=== PATIENT | female | born 1965 | race Caucasian/White ===

== ENCOUNTER 2021-06-14 17:35 | Inpatient (IN) | payer BC ==
[~2021-06-14] VITALS: Ht 157.5 cm; Wt 81.7 kg
[2021-06-14 18:09] VITALS: BP_SYST 156
[2021-06-14 19:09] LABS: BILIRUBIN,URINE NEGATIVE (NEGATIVE); BLOOD, URINE NEGATIVE (NEGATIVE); CLARITY/URINE CLEAR (CLEAR); COLOR,URINE YELLOW (YELLOW); GLUCOSE,URINE NEGATIVE (NEGATIVE); KETONES,URINE NEGATIVE (NEGATIVE); LEUKOCYTE ESTERASE ,URINE NEGATIVE (NEGATIVE); NITRITE, URINE NEGATIVE (NEGATIVE); PROTEIN URINE NEGATIVE (NEGATIVE); UROBILINOGEN,URINE 0.2 (0.2-1.0)
[2021-06-14 19:46] LABS: BASOPHILS % (AUTO) 0.3 % (0.0-2.0); EOSINOPHILS # (AUTO) 0.1 K/uL (0.0-0.4); EOSINOPHILS % (AUTO) 1.4 % (0.0-4.0); HEMATOCRIT 41.2 % (36-48); LYMPHOCYTES # (AUTO) 1.8 K/uL (1.0-5.5); LYMPHOCYTES % (AUTO) 22.4 % (20.5-51.5); MEAN CORPUSCULAR HEMOGLOBIN 31 pg (27-31); MEAN CORPUSCULAR HGB CONC 34 % (32-36); MEAN CORPUSCULAR VOLUME 91 fL (79.0-98.0); MONOCYTES # (AUTO) 0.5 K/uL (0.0-1.0); MONOCYTES % (AUTO) 6.4 % (1.7-9.3); NEUTROPHILS # (AUTO) 5.5 K/uL (1.8-7.7); NEUTROPHILS % (AUTO) 69.5 % (40.0-70.0); PLATELET COUNT (AUTO) 296 K/uL (130-430); RED BLOOD CELL COUNT(AUTO) 4.51 MIL/uL (4.2-6.2)
[2021-06-14 19:55] LABS: CALCIUM 8.7 mg/dL (8.4-11.0); CREATININE 0.61 mg/dL (0.55-1.30); POTASSIUM 4.4 mmol/L (3.5-5.1)
--- NOTE | 2021-06-14 20:07 | NUR ---
Patient to ER bed 05 to gown for evaluation. Side rails up.
[2021-06-14 20:08] LABS: ALBUMIN 3.7 g/dL (3.4-4.8); TOTAL BILIRUBIN 0.2 mg/dL (0.0-1.0)
--- NOTE | 2021-06-14 20:21 | NUR ---
DR HARPER AT BEDSIDE FOR EXAM.
--- NOTE | 2021-06-14 20:21 | NUR ---
PT COMES TO ER WITH C/O LOWER ABD PAIN X 3 WEEKS, INTERNITTENT, NON RADIATING-SHARP IN SENSATION 610 AT THIS TIME. PT DENIES ANY N/V/D. NO FEVERS/CHILLS. PT STATES WORSEN WHEN SHE HAS A BOWL MOVEMENT, BUT REGULAR DAILY BMs. DENIES DYSURIA, BUT REPORTS FREQUENCY. URINE COLLECTED AND SENT TO LAB. ABD ROUND/SOFT, TENDER WITH PALPATION. RESP EVEN AND UNLABORED, DENIES ANY CP OR SOB. SKIN W/D/I. BLOOD DRAWN COLLECTED BY MORTGAGE LOAN OFFICER, WILL CONT TO MONITOR.
[2021-06-14] MEDS ORDERED: ACETAMINOPHEN 500 MG TABLET PO ONE (20:30)
[2021-06-14] MEDS ORDERED: IBUPROFEN 800 MG TABLET PO ONE (20:30)
[2021-06-14] MEDS ORDERED: DICYCLOMINE HCL 10 MG/5 ML SOLUTION PO ONE (20:30)
--- NOTE | 2021-06-14 20:39 | NUR ---
PT TO CT SCAN VIA W/C
--- NOTE | 2021-06-14 20:50 | NUR ---
PT MEDICATED, WILL MONITOR FOR EFFECT.
--- NOTE | 2021-06-14 21:41 | NUR ---
DR HARPER AT BEDSIDE FOR RE-EVALUATION. DR MICHAEL BANERJEE FOR POSS ADMISSSION.
[2021-06-14] MEDS ORDERED: MORPHINE 4 MG INJ. 4 MG/ML VIAL IVP ONE (22:15)
--- NOTE | 2021-06-14 22:17 | NUR ---
ADMISSION ORDERS RECEIVED BY DR RODRIGUEZ.
--- NOTE | 2021-06-14 22:42 | NUR ---
AT BEDSIDE, PLAN OF CARE DISCUSSED, VERBALIZED UNDERSTANDING.
--- NOTE | 2021-06-15 00:11 | NUR ---
REPORT GIVEN TO JUANITA ROMAN, UPDATED ON STATUS, ALBS AND VITALS. VSS
--- NOTE | 2021-06-15 00:22 | NUR ---
Patient will be admitted to care of DR RODRIGUEZ. Admitted to unit. Will go to room . Belongings list completed. Complete and up to date summary report printed. SBAR report to be given at bedside with opportunity for questions.
[2021-06-15 00:35] VITALS: BP_SYST 135
[2021-06-15] MEDS: D5NS 1,000 ML IV SCH ×3 (01:21→16:14)
--- NOTE | 2021-06-15 02:15 | NUR ---
ADMISSION: The patient, KYREE VICENTE, 56 y/o, F admitted by MIMI RODRIGUEZ DO, was given written information regarding hospital policies, unit procedures and contact persons. Valuables were checked and safety measures implemented call ponce given to patient assist for ambulation assist as needed .
[2021-06-15 08:00] VITALS: BP_SYST 136
--- NOTE | 2021-06-15 08:39 | NUR ---
CONSULTATION PAGED REASON FOR CONSULTATION:PERIHEPATIC FLUID, ABD PAIN WAS CONSULT CALLED?Y PERSON WHO WAS NOTIFIED:WESLY CONSULTING PHYSICIAN:SMITH BRAMBILA UPHOLSTERY AUTO TRIMMER SPECIALTY:SURGEON UPHOLSTERY AUTO TRIMMER PHONE NUMBER: [phone] REQUESTING PHYSICIAN:[facility]
[2021-06-15] MEDS ORDERED: MORPHINE 2 MG/ML INJ. SYRINGE IVP PRN ×2 (08:45)
[2021-06-15] MEDS ORDERED: DOCUSATE SODIUM 100 MG CAPSULE PO PRN (08:45)
[2021-06-15] MEDS ORDERED: NALOXONE HCL 0.4 MG/ML AMP (NARCAN) IVP PRN ×2 (08:45)
[2021-06-15] MEDS ORDERED: POTASSIUM CHLORIDE 20 MEQ TAB.PRT.SR PO PRN (08:45)
[2021-06-15] MEDS ORDERED: ONDANSETRON HCL 4 MG/2 ML VIAL IVP PRN (08:45)
[2021-06-15] MEDS ORDERED: ACETAMINOPHEN 325 MG TABLET PO PRN (08:45)
[2021-06-15] MEDS ORDERED: MAGNESIUM SULFATE 50 ML IV PRN (08:45)
[2021-06-15] MEDS ORDERED: LORazepam 2 MG/ML VIAL IVP PRN (08:45)
[2021-06-15] MEDS ORDERED: MUPIROCIN 2% TOPICAL OINTMENT 22 GM NS PRN (08:45)
[2021-06-15] MEDS: HEPARIN SODIUM,PORCINE 5,000 UNITS/ML VIAL SUBCUT SCH ×2 (10:10→22:15)
[2021-06-15 12:18] VITALS: BP_SYST 136
[2021-06-15 16:00] VITALS: BP_SYST 134
[2021-06-15] MEDS ORDERED: BISACODYL 5 MG TABLET.DR (DULCOLAX) PO ONE (17:00)
[2021-06-15] MEDS ORDERED: GOLYTELY / COLYTE SOLUTION 4 LITERS PO ONE (18:00)
--- NOTE | 2021-06-15 18:00 | NUR ---
LATE ENTRY 0800-PT STABLE NOT IN ACUTE DISTRESS. IVF INFUSING WELL. 1200- PT STABLE NOT IN ACUTE DISTRESS. SEEN BY DR MELO. 1400- PT AMBULATING TO BATHROOM STEADY GAIT. SAFETY FALL PRECAUTIONS IN PLACE.CALL LIGHT WITHIN REACH. 1630- PT RT HAND IV PAINFULL. NEW IV LINE STARTED ON LEFT FOREARM #22. FLUSHED WELL. IVF INFUSING WELL. .NO S/SOF INFILTRATION NOTED.. 1900- PT STABLE. NOTIN ACUTE DISTRESS. DENIES ANYPAIN AT THIS TIME.. DRINKING GOLYTELY. NOT IN ACUTE DISTRESS. REPORT GIVEN TO NIGHT RN
[2021-06-15 20:00] VITALS: BP_SYST 150
[2021-06-15] MEDS ORDERED: ZOLPIDEM TARTRATE 5 MG TABLET PO PRN (21:00)
--- NOTE | 2021-06-15 21:00 | NUR ---
Opening notes/bowel prep Pt AAOx4, VSS, no c/o abd pain at this time. IVF infusing L. FA 22G clear and patent. Pt tolerating golytely bowel prep well. Pt NPO after midnight and Tap enema at 5AM, pt agreeable. Per pt stool is yellow and watery. Call light within reach. Bed low, locked, siderails up x2. To monitor.
--- NOTE | 2021-06-15 22:15 | NUR ---
Heparin held Paged and spoke with Dr. Richey and order to hold Heparin tonight.
--- NOTE | 2021-06-15 22:15 | NUR ---
Paged Dr. Richey s/w Samantha
[2021-06-16] MEDS: D5NS 1,000 ML IV SCH (01:56)
--- NOTE | 2021-06-16 02:01 | NUR ---
Rounds Pt awake, no s/s distress. New IV bag administered at ordered rate L. FA 22G clear and patent. Pt NPO. Call light within reach. To monitor.
[2021-06-16 04:49] VITALS: BP_SYST 139
--- NOTE | 2021-06-16 06:05 | NUR ---
Closing notes/Tap enema Pt AAOx4, tap enema done and pt is clear, noted light yellow watery stool no sediments. Pt maintained NPO. IVF infusing at ordered rate L.FA 22G no s/s infiltration. Pt to go for colonoscopy at 0730. To endorse to AM nurse.
[2021-06-16 06:54] LABS: BASOPHILS % (AUTO) 0.3 % (0.0-2.0); EOSINOPHILS # (AUTO) 0.1 K/uL (0.0-0.4); EOSINOPHILS % (AUTO) 1.9 % (0.0-4.0); HEMATOCRIT 40.1 % (36-48); HEMOGLOBIN 13.4 g/dL (12.0-16.0); LYMPHOCYTES # (AUTO) 1.6 K/uL (1.0-5.5); LYMPHOCYTES % (AUTO) 23.6 % (20.5-51.5); MEAN CORPUSCULAR HEMOGLOBIN 31 pg (27-31); MEAN CORPUSCULAR HGB CONC 33 % (32-36); MEAN CORPUSCULAR VOLUME 93 fL (79.0-98.0); MONOCYTES # (AUTO) 0.6 K/uL (0.0-1.0); MONOCYTES % (AUTO) 8.8 % (1.7-9.3); NEUTROPHILS # (AUTO) 4.4 K/uL (1.8-7.7); NEUTROPHILS % (AUTO) 65.4 % (40.0-70.0); PLATELET COUNT (AUTO) 302 K/uL (130-430); RED BLOOD CELL COUNT(AUTO) 4.32 MIL/uL (4.2-6.2); RED CELL DISTRIBUTION WIDTH 12.9 % (9.0-15.0); WHITE BLOOD COUNT (AUTO) 6.7 K/uL (4.8-10.8)
[2021-06-16 06:57] LABS: CALCIUM 7.6 mg/dL (8.4-11.0); CREATININE 0.58 mg/dL (0.55-1.30); POTASSIUM 3.8 mmol/L (3.5-5.1)
--- NOTE | 2021-06-16 07:20 | NUR ---
Picked up by GI via wheelchair for colonoscopy.
[2021-06-16] MEDS ORDERED: MIDAZOLAM HCL 5 MG/5 ML VIAL ONE (07:26)
[2021-06-16] MEDS ORDERED: fentaNYL CITRATE/PF 100 MCG/2 ML AMP ONE (07:26)
[2021-06-16] MEDS ORDERED: DIPHENHYDRAMINE INJ 50 MG/ML VIAL ONE (07:58)
[2021-06-16] MEDS: MORPHINE 2 MG/ML INJ. SYRINGE IVP PRN ×2 (08:58→13:04)
[2021-06-16] MEDS: HEPARIN SODIUM,PORCINE 5,000 UNITS/ML VIAL SUBCUT SCH ×2 (09:05→21:00)
[2021-06-16] MEDS: LOSARTAN POTASSIUM 25 MG TABLET PO SCH (09:17)
[2021-06-16 11:45] VITALS: BP_SYST 129
[2021-06-16 16:15] VITALS: BP_SYST 123
--- NOTE | 2021-06-16 16:18 | NUR ---
CONSULT GYNECOLOGY INT LOW ABDOMINAL PELVIC PAIN RAE ALDANA [phone] [facility]
--- NOTE | 2021-06-16 19:30 | NUR ---
OPENING RN NOTES PM SHIFT VERBAL REPORT RECEIVED FROM KINGS ROMAN FOLLOWED BY BEDSIDE ROUNDS. PT A/OX4. AT BEDSIDE. ENDORSED PT TO BE NPO AFTER MIDNIGHT FOR ULTRA SOUND GUIDED ASPIRATION OF PEROTONEAL FLUIDS IN A.M. PT STATED UNDERSTOOD. ABDOMEN DISTENDED AND MODERATELY FIRM. HYPO ACTIVE BOWEL SOUNDS. UNABLE TO PASS GAS. PT DENIES PRESENT NEED FOR PAIN MEDS. INSTRUCTED LAST MEDICATED AT APPROX 1300 AND COULD HAVE IT ANY TIME NOW. PT STATED UNDERSTOOD. IV D5 NS @ 100 ML/HR. BED IN LOWEST POSITION AND LOCKED. CALL LIGHT WITHIN EASY REACH. PT BRP. GAIT STEADY. CONT. TO MONITOR, PROVIDE COMFORT AND SAFETY MEASURES AND ASSIST NEEDED.
[2021-06-16 20:00] VITALS: BP_SYST 150
--- NOTE | 2021-06-16 22:00 | NUR ---
PT CONTINUES RESTING WITHOUT NEEDS. READING [employer] R[employer] NOVEL AT BEDSIDE. NO NEEDS VERBALIZED. CONT TO MONITOR PAIN AND PROVIDE SAFETY MEASURES.
--- NOTE | 2021-06-17 | NUR ---
ALL FLUIDS REMOVED FROM BEDSIDE. PT STATED UNDERSTOOD NPO AND WILL REFUSE ALL PO INTAKE.
[2021-06-17] MEDS: D5NS 1,000 ML IV SCH ×4 (00:15→23:21)
[2021-06-17 02:19] VITALS: BP_SYST 137
[2021-06-17 06:33] LABS: CREATININE 0.63 mg/dL (0.55-1.30); POTASSIUM 3.5 mmol/L (3.5-5.1)
[2021-06-17 06:41] LABS: BASOPHILS % (AUTO) 0.3 % (0.0-2.0); EOSINOPHILS # (AUTO) 0.2 K/uL (0.0-0.4); EOSINOPHILS % (AUTO) 2.4 % (0.0-4.0); HEMOGLOBIN 12.9 g/dL (12.0-16.0); LYMPHOCYTES # (AUTO) 1.3 K/uL (1.0-5.5); LYMPHOCYTES % (AUTO) 19.3 % (20.5-51.5); MEAN CORPUSCULAR HEMOGLOBIN 31 pg (27-31); MEAN CORPUSCULAR HGB CONC 34 % (32-36); MEAN CORPUSCULAR VOLUME 92 fL (79.0-98.0); MONOCYTES # (AUTO) 0.6 K/uL (0.0-1.0); MONOCYTES % (AUTO) 8.5 % (1.7-9.3); NEUTROPHILS # (AUTO) 4.7 K/uL (1.8-7.7); NEUTROPHILS % (AUTO) 69.5 % (40.0-70.0); PLATELET COUNT (AUTO) 286 K/uL (130-430); RED BLOOD CELL COUNT(AUTO) 4.15 MIL/uL (4.2-6.2); WHITE BLOOD COUNT (AUTO) 6.7 K/uL (4.8-10.8)
[2021-06-17 08:19] VITALS: BP_SYST 155
[2021-06-17 12:21] VITALS: BP_SYST 137
[2021-06-17] MEDS: LOSARTAN POTASSIUM 25 MG TABLET PO SCH (12:23)
[2021-06-17] MEDS: HEPARIN SODIUM,PORCINE 5,000 UNITS/ML VIAL SUBCUT SCH ×2 (12:26→23:24)
[2021-06-17 16:53] VITALS: BP_SYST 142
--- NOTE | 2021-06-17 19:30 | NUR ---
OPENING NURSING NOTES PM SHIFT VERBAL REPORT RECEIVED FROM AMALIA ROMAN.ENDORSED 70 MLS REMOVED FROM ABDOMEN AND SENT TO CYTOLOGY LAB. NEW IV STARTED IN L HAND 22 GA. MONITOR, ASSIST NEEDED. BED IN LOWEST POSITION AND LOCKED. CALL LIGHT WITHIN EASY REACH. PT RECEIVED CHEERFUL AND STATED FEELING BETTER AND PASSING GAS. AUDIBLE BOWEL SOUNDS FROM ACROSS THE ROOM. EXPLAINED TO PT THIS IS A GOOD SIGN AND TO EXPELL THE GAS IT COMES UP AND NOT WITHOLD IT EVEN IF OTHERS PRESENT.STATED UNDERSTOOD. CONTINUE TO MONITOR, ASSIST AND MAINTAIN SAFETY MEASURES. ABDOMINAL BAND-AID CDI.
[2021-06-17 19:39] LABS: BODY FLUID GLUCOSE 124 mg/dL; BODY FLUID TOTAL PROTEIN 5.1 g/dL
[2021-06-17 20:00] VITALS: BP_SYST 126
--- NOTE | 2021-06-17 22:30 | NUR ---
/ PRIYA MUNIZ ADVANCED PT DIET TO REGULAR STARTING IN A.M.
[2021-06-17 23:31] LABS: APPEARANCE,SPUN,BODY FLUID CLEAR (CLEAR); BF APPEARANCE UNSPUN HAZY (CLEAR); BODY FLUID COLOR YELLOW (LT YELLOW); BODY FLUID SOURCE/ TYPE PARACENTESIS; BODY FLUID TOTAL VOLUME 50 mL; RBC, BODY FLUID 1246 /uL; SOURCE/TYPE ,BODY FLUID ASCITES; WBC, BODY FLUID 1406 /uL
[2021-06-17 23:35] LABS: EOSINOPHIL, BODY FLUID 0 %; LYMPHOCYTES, BODY FLUID 55 %; MONOCYTES,BODY FLUID 41 %; NEUTROPHIL, BODY FLUID 4 %
[2021-06-18 00:42] VITALS: BP_SYST 128
[2021-06-18 06:53] LABS: BASOPHILS % (AUTO) 0.3 % (0.0-2.0); EOSINOPHILS # (AUTO) 0.3 K/uL (0.0-0.4); EOSINOPHILS % (AUTO) 4.3 % (0.0-4.0); HEMATOCRIT 40.1 % (36-48); HEMOGLOBIN 13.2 g/dL (12.0-16.0); LYMPHOCYTES # (AUTO) 1.5 K/uL (1.0-5.5); LYMPHOCYTES % (AUTO) 23.9 % (20.5-51.5); MEAN CORPUSCULAR HEMOGLOBIN 30 pg (27-31); MEAN CORPUSCULAR HGB CONC 33 % (32-36); MEAN CORPUSCULAR VOLUME 92 fL (79.0-98.0); MONOCYTES # (AUTO) 0.6 K/uL (0.0-1.0); MONOCYTES % (AUTO) 9.2 % (1.7-9.3); NEUTROPHILS # (AUTO) 3.8 K/uL (1.8-7.7); NEUTROPHILS % (AUTO) 62.3 % (40.0-70.0); PLATELET COUNT (AUTO) 290 K/uL (130-430); RED BLOOD CELL COUNT(AUTO) 4.36 MIL/uL (4.2-6.2); RED CELL DISTRIBUTION WIDTH 13.2 % (9.0-15.0); WHITE BLOOD COUNT (AUTO) 6.1 K/uL (4.8-10.8)
--- NOTE | 2021-06-18 07:30 | NUR ---
CLOSING PM NURSING NOTE VERBAL REPORT GIVEN TO AMALIA (UPDATE) PT DIET ADVANCED PER MD POWERS AND INCREASED BOWEL SOUNDS WITH INCREASED AMBULATION ENCOURAGED. RELINQUISHED PT A/0X4 AND AWAKE IN BED. NO C/O.
[2021-06-18 08:00] VITALS: BP_SYST 142
--- NOTE | 2021-06-18 08:00 | NUR ---
Report received from Jennifer Ag. Pt is a/o x4, vss, no distress, denies any pain. Pt states that she is ready to go home. Awaiting for doctor to discharge pt.
[2021-06-18 08:07] LABS: CALCIUM 8.5 mg/dL (8.4-11.0); CREATININE 0.57 mg/dL (0.55-1.30); POTASSIUM 4.1 mmol/L (3.5-5.1)
[2021-06-18] MEDS: HEPARIN SODIUM,PORCINE 5,000 UNITS/ML VIAL SUBCUT SCH (09:00)
[2021-06-18] MEDS: LOSARTAN POTASSIUM 25 MG TABLET PO SCH (09:01)
[2021-06-18] MEDS ORDERED: HYDR-3917 PO (09:02)
[2021-06-18 11:03] VITALS: BP_SYST 140
[2021-06-18 11:07] LABS: AMYLASE,BODY FLUID 37 U/L (.); LDH,BODY FLUID 361 IU/L (.)
--- NOTE | 2021-06-18 11:15 | NUR ---
Discharge instructions, follow up appointments, prescription meds given to pt. Belongings returned and signed by pt, iv line and armband d/stephanie. Addressed pt questions and concerns. Family at bedside to take pt home. Assisted pt out of the unit via wheel chair with another rn.
== END 2021-06-18 11:20 | disposition home or self-care (01) | DRG 392 ==
LOC: SED 17:35 → SMU 22:13
PROVIDERS: ADMIT General Practice; ATTEND General Practice
PROC: 0DBN8ZX Excision of Sigmoid Colon, Via Natural or Artificial Opening Endoscopic, Diagnostic (ICD-10-PCS; principal; 2021-06-16 07:30)
PROC: 0W9G3ZZ Drainage of Peritoneal Cavity, Percutaneous Approach (ICD-10-PCS; 2021-06-17)
DX: R10.30 Lower abdominal pain, unspecified (principal); R18.8 Other ascites; I10 Essential (primary) hypertension; M81.0 Age-related osteoporosis without current pathological fracture; Z20.822 Contact with and (suspected) exposure to COVID-19; K43.9 Ventral hernia without obstruction or gangrene; R16.0 Hepatomegaly, not elsewhere classified; K64.8 Other hemorrhoids; Z87.891 Personal history of nicotine dependence
CPT/HCPCS: 36415; 45380; 49083; 71045; 76376; 76700-TC; 76705; 76830-TC; 76857; 80048; 80053; 81003; 82042; 82150; 82947; 82962; 83036; 83690; 83735; 84157; 85025; 85610-TC; 88108; 88305; 88341; 88342; 89051-TC; 89060-TC; 99285; J1200; J1644; J2250; J2270; J3010

== ENCOUNTER 2022-05-31 18:39 | Emergency (ER) | payer BC ==
[~2022-05-31] VITALS: Ht 157.5 cm; Wt 70.3 kg
[~2022-05-31 18:39] MED LIST: HYDR-3917 PO
[2022-05-31 18:45] VITALS: BP_SYST 186
--- NOTE | 2022-05-31 18:57 | NUR ---
Patient to ER bed 02 to gown for evaluation. Side rails up.
--- NOTE | 2022-05-31 19:34 | NUR ---
Patient brought in from home due to hypertension with mild Headache. Patient is a [facility] patient for ovarian cancer. Hx of HTN. Patient takes Tamisartan for blood pressure. Denies any blurred vision, chest pain, shortness of breath. Pain 2/10
--- NOTE | 2022-05-31 20:00 | NUR ---
ER Dr. Guzmán at bedside examining patient.
[2022-05-31 20:11] VITALS: BP_SYST 150
--- NOTE | 2022-05-31 20:11 | NUR ---
Patient given written and verbal discharge instructions and verbalizes understanding. ER MD discussed with patient the results and treatment provided. Patient in stable condition. ID arm band removed. Patient educated on pain management and to follow up with PMD. Pain Scale 0/10 Opportunity for questions provided and answered.
== END 2022-05-31 20:11 | disposition home or self-care (01) ==
LOC: SED 18:39
DX: I10 Essential (primary) hypertension (principal); R51.9 Headache, unspecified; Z79.899 Other long term (current) drug therapy
CPT/HCPCS: 99281